=== PATIENT | female | born 1980 | race Caucasian/White ===

== ENCOUNTER 2021-12-10 19:59 | Emergency (ER) | payer OTHER ==
[~2021-12-10] VITALS: Ht 165.1 cm; Wt 52.2 kg
== END 2021-12-11 00:05 | disposition home or self-care (01) ==
LOC: ER 19:59
DX: F41.0 Panic disorder [episodic paroxysmal anxiety] (principal); R42 Dizziness and giddiness; E16.1 Other hypoglycemia